=== PATIENT | male | born 1980 | race African-American/Black ===

== ENCOUNTER 2019-06-05 17:54 | Inpatient (IN) | payer MEDICARE, MEDICAID ==
[~2019-06-05] VITALS: Ht 188 cm; Wt 83.5 kg
[2019-06-05] MEDS ORDERED: AMLODIPINE 10MG TABLET PO ONE (18:15)
[2019-06-05] MEDS ORDERED: CLONIDINE 0.2MG TABLET PO ONE (18:45)
[2019-06-05 19:35] LABS: BASOPHILS % 1.1 % (0.0-2.0); EOSINOPHILS % 2.6 % (0.0-5.0); HEMATOCRIT. 30.3 % (42.0-52.0); HEMOGLOBIN. 10.6 g/dL (14.0-18.0); LYMPHOCYTES % 16.2 % (20.0-50.0); MEAN CORPUSCULAR HEMOGLOBIN 30.6 pg (28.0-32.0); MEAN CORPUSCULAR VOLUME 87.8 fL (80.0-94.0); MEAN PLATELET VOLUME 8.5 fl (7.4-10.4); MONOCYTES % 13.9 % (2.0-8.0); NEUTROPHILS % 66.2 % (40.0-76.0); PLATELET 151 x1000/uL (130-400); RED BLOOD CELL COUNT 3.45 mill/uL (4.7-6.1); RED CELL DISTRIBUTION WIDTH 14.6 % (11.6-14.6)
[2019-06-05 19:39] LABS: CHLORIDE 105 mEq/L (98-107)
[2019-06-05] MEDS ORDERED: DEXAMETHASONE 4MG/ML 1ML VIAL IV ONE (20:15)
[2019-06-05] MEDS ORDERED: FUROSEMIDE 20MG/2ML VIAL IVP ONE (20:15)
[2019-06-05 20:28] LABS: TOTAL IRON BINDING CAPACITY 218 ug/dL (250-450)
[2019-06-05] MEDS ORDERED: DOCUSATE SODIUM 100MG CAPSULE PO PRN (21:00)
[2019-06-05] MEDS ORDERED: ACETAMINOPHEN 325MG TABLET PO PRN (21:00)
[2019-06-05] MEDS ORDERED: LORAZEPAM 0.5MG TABLET PO PRN (21:00)
[2019-06-05] MEDS ORDERED: IPRATROPIUM/ALBUTEROL 0.5-3(2.5)MG/3ML NEB NEB PRN (21:00)
[2019-06-05] MEDS ORDERED: MAGNESIUM/ALUMINUM HYDROXIDE/SIMETHICONE 30ML UDC PO PRN (21:00)
[2019-06-05] MEDS ORDERED: GUAIFENESIN 200MG/10ML SUGAR FREE UDC PO PRN (21:00)
[2019-06-05] MEDS ORDERED: KETOROLAC 15MG/ML VIAL IV PRN (21:00)
[2019-06-05] MEDS ORDERED: NITROGLYCERIN 0.4MG TABLET SL SL PRN (21:00)
[2019-06-05] MEDS ORDERED: ONDANSETRON HCL 4MG/2ML INJ IV PRN (21:00)
[2019-06-05] MEDS ORDERED: TRAMADOL 50MG TABLET PO PRN (21:00)
[2019-06-05] MEDS ORDERED: POTASSIUM CHLORIDE 20MEQ TABLET SR PO NR (21:00)
[2019-06-05] MEDS ORDERED: FUROSEMIDE 40MG/4ML VIAL IVP SCH (21:00)
[2019-06-05] MEDS ORDERED: ASPIRIN 81MG TABLET PO NR (21:00)
[2019-06-05 21:20] LABS: ETHANOL BLOOD < 10 mg/dL
[2019-06-05 21:22] LABS: HDL CHOLESTEROL 41 mg/dL (40-59)
[2019-06-05 21:23] LABS: LDL CHOLESTEROL 112 mg/dL (5-100)
[2019-06-05 21:39] LABS: FOLIC ACID (FOLATE) SERUM 8.8 ng/mL (>5.38)
[2019-06-06 00:21] LABS: CREATINE KINASE MB FRACTION 2.1 ng/mL (0.5-3.6)
[2019-06-06 05:26] LABS: HEMATOCRIT. 31.9 % (42.0-52.0); HEMOGLOBIN. 10.9 g/dL (14.0-18.0); MEAN CORPUSCULAR HEMOGLOBIN 30.6 pg (28.0-32.0); MEAN PLATELET VOLUME 8.5 fl (7.4-10.4); PLATELET 162 x1000/uL (130-400); RED BLOOD CELL COUNT 3.58 mill/uL (4.7-6.1); RED CELL DISTRIBUTION WIDTH 14.4 % (11.6-14.6)
[2019-06-06 05:35] LABS: CHLORIDE 106 mEq/L (98-107)
[2019-06-06 05:42] LABS: PHOSPHORUS 3.2 mg/dL (2.5-4.9)
[2019-06-06 05:43] LABS: CREATINE KINASE 247 IU/L (39-308)
[2019-06-06 05:47] LABS: CREATINE KINASE MB FRACTION 1.8 ng/mL (0.5-3.6)
[2019-06-06] MEDS: CARVEDILOL 3.125 MG TABLET PO SCH ×2 (06:42→17:48)
[2019-06-06] MEDS: CLONIDINE 0.1MG TABLET PO PRN ×2 (08:08→17:48)
[2019-06-06 08:30] LABS: PLATELET ESTIMATE NORMAL
[2019-06-06 08:45] VITALS: BP 159/114
[2019-06-06 09:00] VITALS: BP 129/114
[2019-06-06] MEDS: LISINOPRIL 20MG TABLET PO SCH ×2 (10:41→21:37)
[2019-06-06] MEDS: POTASSIUM CHLORIDE 20MEQ TABLET SR PO SCH (10:41)
[2019-06-06] MEDS: FUROSEMIDE 40MG/4ML VIAL IVP SCH ×2 (10:41→21:33)
[2019-06-06] MEDS: FAMOTIDINE 20MG TABLET PO SCH ×2 (10:41→21:34)
[2019-06-06] MEDS: ENOXAPARIN 40MG/0.4ML SYR SUBCUT SCH (10:42)
[2019-06-06] MEDS: ASPIRIN 325MG EC TABLET PO SCH (10:42)
[2019-06-06 12:00] VITALS: BP 146/103
[2019-06-06] MEDS ORDERED: ATEN50TA PO (15:50)
[2019-06-06] MEDS ORDERED: AMLO10TA4 PO (15:50)
[2019-06-06 16:00] VITALS: BP 129/89
[2019-06-06 20:00] VITALS: BP 122/81
[2019-06-06] MEDS ORDERED: ZOLPIDEM TARTRATE 5MG TABLET PO PRN (21:00)
[2019-06-06] MEDS: SPIRONOLACTONE 25MG TABLET PO SCH (21:37)
[2019-06-07] VITALS: BP 120/67
[2019-06-07 04:00] VITALS: BP 117/77
[2019-06-07] MEDS: CARVEDILOL 3.125 MG TABLET PO SCH ×2 (06:08→17:05)
[2019-06-07 08:00] VITALS: BP 108/65
[2019-06-07 08:36] LABS: *AMPHETAMINES SCREEN URINE NEGATIVE (NEGATIVE); *BARBITURATES SCREEN URINE NEGATIVE (NEGATIVE); *BENZODIAZEPINES SCREEN URINE NEGATIVE (NEGATIVE); *COCAINE SCREEN URINE NEGATIVE (NEGATIVE)
[2019-06-07 08:37] LABS: OPIATES URINE SCREEN NEGATIVE (NEGATIVE); PHENCYCLIDINE URINE SCREEN NEGATIVE (NEGATIVE)
[2019-06-07 08:38] LABS: CANNABINOID URINE SCREEN NEGATIVE (NEGATIVE); METHADONE URINE SCREEN NEGATIVE (NEGATIVE)
[2019-06-07] MEDS: LISINOPRIL 20MG TABLET PO SCH ×2 (09:00→20:45)
[2019-06-07] MEDS: FAMOTIDINE 20MG TABLET PO SCH ×2 (09:29→20:44)
[2019-06-07] MEDS: ASPIRIN 325MG EC TABLET PO SCH (09:29)
[2019-06-07] MEDS: POTASSIUM CHLORIDE 20MEQ TABLET SR PO SCH (09:29)
[2019-06-07] MEDS: SPIRONOLACTONE 25MG TABLET PO SCH ×2 (09:30→20:44)
[2019-06-07] MEDS: FUROSEMIDE 40MG/4ML VIAL IVP SCH ×2 (09:38→20:44)
[2019-06-07] MEDS: ENOXAPARIN 40MG/0.4ML SYR SUBCUT SCH (13:25)
[2019-06-07 16:24] VITALS: BP 116/77
[2019-06-07 20:00] VITALS: BP 121/84
[2019-06-08] VITALS: BP 111/67
[2019-06-08 04:00] VITALS: BP 123/81
[2019-06-08] MEDS: CARVEDILOL 3.125 MG TABLET PO SCH ×2 (06:52→17:23)
[2019-06-08 08:00] VITALS: BP 115/68
[2019-06-08] MEDS: POTASSIUM CHLORIDE 20MEQ TABLET SR PO SCH (09:52)
[2019-06-08] MEDS: ASPIRIN 325MG EC TABLET PO SCH (09:52)
[2019-06-08] MEDS: FAMOTIDINE 20MG TABLET PO SCH ×2 (09:53→22:45)
[2019-06-08] MEDS: FUROSEMIDE 40MG/4ML VIAL IVP SCH ×2 (09:56→22:54)
[2019-06-08] MEDS: SPIRONOLACTONE 25MG TABLET PO SCH ×2 (09:57→22:45)
[2019-06-08] MEDS: LISINOPRIL 20MG TABLET PO SCH ×2 (09:58→22:46)
[2019-06-08] MEDS: ENOXAPARIN 40MG/0.4ML SYR SUBCUT SCH (11:58)
[2019-06-08 12:00] VITALS: BP 114/78
[2019-06-08 16:00] VITALS: BP 116/77
[2019-06-08 20:00] VITALS: BP 133/84
[2019-06-09] VITALS: BP 129/88
[2019-06-09 04:00] VITALS: BP 131/86
[2019-06-09] MEDS: CARVEDILOL 3.125 MG TABLET PO SCH (05:51)
[2019-06-09 08:00] VITALS: BP 128/78
[2019-06-09] MEDS: SPIRONOLACTONE 25MG TABLET PO SCH (09:03)
[2019-06-09] MEDS: POTASSIUM CHLORIDE 20MEQ TABLET SR PO SCH (09:04)
[2019-06-09] MEDS: LISINOPRIL 20MG TABLET PO SCH (09:04)
[2019-06-09] MEDS: FUROSEMIDE 40MG/4ML VIAL IVP SCH (09:04)
[2019-06-09] MEDS: ASPIRIN 325MG EC TABLET PO SCH (09:04)
[2019-06-09] MEDS: FAMOTIDINE 20MG TABLET PO SCH (09:04)
[2019-06-09 12:00] VITALS: BP 128/72
[2019-06-09] MEDS: ENOXAPARIN 40MG/0.4ML SYR SUBCUT SCH (12:00)
[2019-06-09 15:09] VITALS: BP 115/79
== END 2019-06-09 15:30 | disposition home or self-care (01) | DRG 280 ==
LOC: ER 17:54 → 5WST 20:13 → SUPCPDRO 20:56 → ENRESERV 06-06 07:16
PROVIDERS: ADMIT Internal Medicine; ATTEND Internal Medicine
DX: I21.4 Non-ST elevation (NSTEMI) myocardial infarction (principal); I50.43 Acute on chronic combined systolic (congestive) and diastolic (congestive) heart failure; J96.00 Acute respiratory failure, unspecified whether with hypoxia or hypercapnia; N17.0 Acute kidney failure with tubular necrosis; D61.818 Other pancytopenia; E44.0 Moderate protein-calorie malnutrition; E83.51 Hypocalcemia; E87.6 Hypokalemia; I11.0 Hypertensive heart disease with heart failure; Z91.14 Patient's other noncompliance with medication regimen; Z79.899 Other long term (current) drug therapy; Z68.23 Body mass index [BMI] 23.0-23.9, adult; Z59.0 Homelessness
CPT/HCPCS: 36415; 71045; 80053; 80061; 80305; 80320; 82550; 82553; 82607; 82746; 83036; 83540; 83550; 83735; 83880; 84100; 84439; 84443; 84484; 85025; 93005; 93306; 93970; 99285; J1100; J1650; J1940; G0480